=== PATIENT | female | born 1935 | race Caucasian/White ===

== ENCOUNTER 2023-05-30 21:33 | Inpatient (IN) | payer MEDICARE, SELFPAY ==
--- NOTE | 2023-05-30 | ECG_ITS ---
Test Reason : NEAR SYNCOPE Blood Pressure : / mmHG Vent. Rate : 085 BPM Atrial Rate : 085 BPM P-R Int : 188 ms QRS Dur : 084 ms QT Int : 378 ms P-R-T Axes : 071 -34 069 degrees QTc Int : 449 ms Normal sinus rhythm Left axis deviation Low voltage QRS Cannot rule out Anterior infarct , age undetermined Abnormal ECG No previous ECGs available Referred By: Generic ED Physician Electronically Signed By:DORETHA ARIAS MD
--- NOTE | ~2023-05-30 | XR_ITS ---
EXAMINATION: XR CHEST CLINICAL INFORMATION: Weakness. Fall. COMPARISON: None available. TECHNIQUE: Frontal view of the chest was obtained. 11:17 PM FINDINGS: Diffuse coarse increased lung markings which could be due to interstitial edema/pneumonia versus pulmonary edema and/or chronic interstitial lung disease. No focal consolidation. No pleural effusion or pneumothorax. XR/XR chest 1V IMPRESSION: Diffuse coarse increased lung markings which could be due to interstitial edema/pneumonia versus pulmonary edema and/or chronic interstitial lung disease.
--- NOTE | ~2023-05-30 | CT_ITS ---
EXAMINATION: CT CHEST WITHOUT CONTRAST CLINICAL INFORMATION: Pneumonia versus CHF COMPARISON: None available. TECHNIQUE: Multidetector volumetric CT imaging of the chest was done. Axial MIP volume rendering provided. Sagittal and coronal reformatted images were obtained. This CT examination was performed using dose optimization techniques as appropriate, variously including the following: *Automated exposure control *Adjustment of mA and/or kV according to patient size (this includes techniques or standardized protocols for targeted exams where dose is matched to indication/reason for exam; i.e. extremities or head) *Use of iterative reconstruction technique DLP: 287 mGy-cm FINDINGS: HYDRATOR OPERATOR: There is diffuse haziness over both lungs. Examination limited due to respiratory motion. LUNGS: There are groundglass opacities seen bilaterally mostly seen. Fairly with clear central portion of lungs there is no evidence of interstitial lung disease or vascular congestion. No lung nodules identified. There are mild changes of emphysema. There is 0.4 cm calcified nodule in the right lower lobe seen on image 36, MEDIASTINUM: The mediastinum is normal. Calcified lymph nodes seen in mediastinum and right hilum CORONARY ARTERY CALCIFICATION: Mild PLEURA: There is no pleural effusion. No pleural mass or thickening. AXILLA: No lymphadenopathy. UPPER ABDOMEN: Supine and calcified granuloma seen in the spleen OSSEOUS STRUCTURES: There are mild multilevel degenerative changes in thoracic spine without compression deformities or spinal canal stenosis. CT/CT chest wo IV con IMPRESSION: 1. Groundglass opacities seen bilaterally most likely due to pneumonitis. No evidence of interstitial lung disease. 2. Evidence of old granulomatous disease. 3. Mild changes of emphysema. 4. Mild coronary artery calcifications. Fleischner guidelines were followed.
--- NOTE | ~2023-05-30 | CT_ITS ---
EXAMINATION: CT HEAD WITHOUT CONTRAST CLINICAL INFORMATION: Weakness. Fall. Dizziness. COMPARISON: None available. TECHNIQUE: Contiguous axial imaging was performed from the skull base to vertex without intravenous administration of contrast. This CT examination was performed using dose optimization techniques as appropriate, variously including the following: *Automated exposure control *Adjustment of mA and/or kV according to patient size (this includes techniques or standardized protocols for targeted exams where dose is matched to indication/reason for exam; i.e. extremities or head) *Use of iterative reconstruction technique DLP: 615 mGy-cm FINDINGS: There is cerebral volume loss with prominence of the lateral and the third ventricles. The cortical sulci are widened appropriately. The fourth ventricle and basal cisterns are normally outlined. There is moderate bilateral periventricular and central white matter diminished attenuation. There is no acute territorial defect, hemorrhage or midline shift. The extra-axial spaces are unremarkable. Calvarium: Intact. Maxillofacial sinuses and mastoids: Clear as visualized. CT/CT head/brain wo IV con IMPRESSION: 1. No acute intracranial process seen. 2. Moderate cerebral volume loss with moderate chronic small vessel ischemic changes.
--- NOTE | ~2023-05-30 | US_ITS ---
EXAMINATION: US EXTRACRANIAL CAROTID DUPLEX, BILATERAL CLINICAL INFORMATION: Events of dizziness upon standing COMPARISON: None available. TECHNIQUE: Real-time ultrasound and Doppler techniques (integrating B-mode 2-D vascular images, Doppler spectral analysis and color-flow Doppler imaging) were utilized to interrogate the extracranial carotid arteries, the vertebral arteries and proximal subclavian arteries bilaterally. The degree of stenosis is determined by criteria similar to NASCET. FINDINGS: Right Side: 1. There is mild atherosclerotic plaque seen in the bifurcation/proximal ICA region. 2. The common carotid artery PSV proximally is 92.5 cm/s and distally 95.7 cm/s. 3. The proximal internal carotid artery velocities are 68.9 cm/s systolic and 17.1 cm/s diastolic. 4. The proximal external carotid artery PSV is 121 cm/s. 5. The vertebral artery shows antegrade flow. 6. The subclavian artery waveforms are normal. Left Side: 1. There is mild atherosclerotic plaque seen in the bifurcation/proximal ICA region. 2. The common carotid artery PSV proximally is 136 cm/s and distally 72.7 cm/s. 3. The proximal internal carotid artery velocities are 106 cm/s systolic and 27.3 cm/s diastolic. 4. The proximal external carotid artery PSV is 113 cm/s. 5. The vertebral artery shows antegrade flow. 6. The subclavian artery waveforms are normal. US/US carotid duplex BI IMPRESSION: 1. RIGHT: Minimal, non-hemodynamically significant stenosis of the proximal right internal carotid artery corresponding to a 0-49% stenosis by velocity criteria. 2. LEFT: Minimal, non-hemodynamically significant stenosis of the proximal left internal carotid artery corresponding to a 0-49% stenosis by velocity criteria.
[2023-05-30 21:39] VITALS: BP 108/70; BP 118/68; PULSE 62; PULSE 89; RESP 14; TEMP 36.6; O2SAT 94; BMI 16.3
--- NOTE | 2023-05-30 21:56 | PC.NURSE ---
Pt coming from home, lives with son. Per EMS pt has dementia son informed she was having decrease in mental statis and increase in weakness. Tonight she had a near syncopal episode son caught her and lowered to the ground. no headstrike, no LOC and no thinners. Pt recently diagnosed with UTI and started on cephalexin but then told she didn't have UTI but she should finish abx. Pt is in bed no complaints at this time. Alert to self only, calm and cooperative. #20 to R-forearm placed by EMS.
[2023-05-30 22:09] LABS: Hematocrit 34.7 % (37.0-47.0); Hemoglobin 11.9 g/dl (12.0-16.0); Mean Corpuscular HGB Conc 34.3 g/dl (31.0-35.0); Mean Corpuscular Hemoglobin 32.6 pg (27.0-33.0); Mean Corpuscular Volume 95.1 fL (80.0-98.0); Mean Platelet Volume 9.4 fL (9.4-12.3); Platelet Count 262 X10*3/uL (160-400); Red Blood Count 3.65 X10*6/uL (4.20-5.50); Red Cell Distribution Width 12.7 % (11.0-16.0); White Blood Count 11.2 X10*3/uL (4.8-10.8)
[2023-05-30 22:22] LABS: Anion Gap 17 (12-20); Blood Urea Nitrogen 28 mg/dL (9-16); Calcium 9.6 mg/dL (8.4-10.2); Carbon Dioxide 22 mmol/L (22-29); Chloride 104 mmol/L (96-108); Creatinine Clr Calc Pharmacy 39.1; Estimated Glomerular Filt Rate > 60; Glucose Random 126 mg/dL (60-115); Magnesium 1.9 mg/dL (1.6-2.6); Potassium 3.7 mmol/L (3.3-5.1); Sodium 139 mmol/L (135-145)
[2023-05-30 22:29] LABS: Troponin-I High Sensitivity 21.6 ng/L (<3.5-17.0)
--- NOTE | 2023-05-30 23:02 | ED_ITS ---
HPI - Syncope General Chief Complaint: Syncope Stated Complaint: GENERAL MALAISE, NEAR SYNCOPE Time Seen by Provider: 05/30/23 23:01 Source: family (SonSushant) Mode of arrival: EMS Limitations: other (Dementia) History of Present Illness HPI narrative: 87-year-old female with a history of hypertension, anxiety and dementia who presents emergency department for evaluation of a syncopal episode. Patient is a poor informant secondary to her dementia and lacks insight as to why she is here in the emergency department. Information comes from the patient's son. The patient has lived with her son and [id number] for approximately 2.5 years. Son states that the patient's dementia is got worse over the past 2-3 weeks. She is also having difficulty standing since any time she stands she feels dizzy and has to sit back down. Patient has also lost the ability to walk and is now using a wheelchair. Patient has not been eating or drinking well. The son states that his mother came out of the room he got up to meet her, she appeared to be anxious so he went to hug her to try to calm her down and then the patient's had a syncopal episode. According to the son the patient became ? weight ?and he had to lower her to the floor. She was moaning and not answering questions. This lasted for several minutes and the son called 911 and the patient was transported to the emergency department by ambulance. Son states the patient was diagnosed with urinary tract infection on Friday (3 days prior to arrival) and has been on antibiotics until today when patient's PCP called and states that the urine culture was negative and that the patient did not have a urinary tract infection by PCP recommended continuing the antibiotics. Related Data Allergies Allergy/AdvReac Type Severity Reaction Status Date / Time No Known Allergies Allergy Verified 05/30/23 21:39 [facility] Past Medical History [facility] Narrative: Past medical history: Hypertension, anxiety, mood disorder, dementia. Social history: Patient lives with her son and [id number] and has been living with them for 2.5 years. Son states he has been more difficult over the last 2- 3 weeks to take care of the patient since she is dizzy every time she stands and has not been able to walk in his required wheelchair to get around in the house. Social History Social History Alcohol intake: never Smoked in Last 30 Days: No Use of substances other than those prescribed or required for medical reasons: No Advance Directives: No Advance Directives Information Provided: No Physical Exam 2 Vital Signs: Vital Signs: Last Vital Signs Temp 97.9 F 05/30/23 21:39 Pulse 73 05/30/23 23:28 Resp 14 05/30/23 21:39 BP 88/57 L 05/30/23 23:28 Pulse Ox 98 05/31/23 01:40 O2 Del Method Room Air 05/31/23 01:40 BMI result Body Mass Index 16.3 Vital signs were normal Orthostatic vital signs: Lying: BP: 110/63, heart rate 70 Sitting: BP 88/57, heart rate 73 Patient was dizzy therefore standing was not done. Exam General: Awake, alert in no distress, oriented to person only, lacks insight as to why she is here, very thin appearing Head: Normocephalic, atraumatic EENT: PERRL, Lids normal, sclera normal, conjunctiva normal, nose normal , ears normal, throat without erythema or exudates Neck: Supple, no adenopathy Lung: breath sounds symmetric, no wheezing, rales or rhonchi Chest: symmetric movement, nontender Heart: regular rate and rhythm, normal S1, S2 no murmurs or rubs Abdomen: soft, non-tender, nondistended, normal bowel sounds Back: no vertebral tenderness, no CVAT Extremities: no deformities, moves all extremities symmetrically Neuro: Awake, alert, oriented to person only, normal speech, cranial nerves intact, moves all extremities symmetrically Psych: Pleasant, cooperative Medications Administered Discontinued Medications Generic Name Dose Route Start Last Admin Trade Name Jones PRN Reason Stop Dose Admin Sodium Chloride 1,000 mls @ 999 mls/hr 05/30/23 23:24 05/31/23 01:12 Ns IV 05/31/23 00:24 999 mls/hr .Q1H1M STA Administration Medical Decision Making Medical Decision Making MDM Narrative: 87-year-old female with a history of hypertension, anxiety and dementia who presents emergency department for evaluation of a witnessed syncopal episode. The patient walked into the room and did not appear well and her son went to hug her and the patient then had a syncopal/near syncopal episode where the son had to lower her to the floor and the patient was altered for several minutes. This is her 1st syncopal/near syncopal episode according to the son. The patient's dementia has gotten worse over the last 2-3 weeks, she is complained of dizziness with standing and has not been able to walk and is currently using a wheelchair which is new for her. Patient was diagnosed with possible UTI and on Keflex x3 days however according to the son PCP contacted him and said that the urine culture was negative but wanted the patient to finish the antibiotics. Patient has not been eating and drinking well over the last 2-3 weeks. Vital signs were normal. Orthostatic vital signs did reveal a drop in blood pressure from lying to sitting but no change in heart rate. Patient was symptomatic and dizzy with sitting. Exam was otherwise unremarkable. Differential diagnosis: Includes but not limited to myocardial infarction, myocardial ischemia, bradyarrhythmia, tachyarrhythmia, electrolyte abnormalities, electrolyte abnormalities, UTI, pneumonia, volume depletion, dehydration, orthostatic hypotension, CVA Following evaluation was ordered: CBC, CMP, liver panel, magnesium, PTT, lipase, urinalysis by straight cath, troponin now and 3 hour troponin, chest x- ray, CT scan of the brain, O2 saturation monitoring, cardiac monitoring Patient was treated with the following: Normal saline x1 L 23:53 My independent interpretation patient's laboratory evaluation as follows: Normocytic anemia with an H&H of 11.9 and 34.7. Elevated BUN 28 with a normal creatinine of 0.72. Elevated glucose 126. Bilirubin elevated 1.2-mainly direct bilirubin 0.7 suggesting that is not caused by liver disease. First troponin elevated at 21.6. Lipase normal. 01:57 Patient's 1st troponin was 21.6 and repeat troponin was 27.3 which is flat suggesting the patient did not have myocardial injury is the cause of her near syncopal episode. Urinalysis was unremarkable. CT scan of the brain revealed no acute findings. Chest x-ray is more consistent with chronic interstitial disease which is most likely age-related, no focal infiltrates suggesting pneumonia Given the patient's witnessed syncopal episode and dizziness over the last 2-3 weeks, I will discuss admission with the covering hospitalist. Lab Data MDM Lab Attestation statement: I reviewed the patient's lab results. 05/30/23 22:04 05/30/23 22:04 Labs: Lab Results 05/30/23 05/31/23 05/31/23 Range/Units 22:04 01:08 01:35 WBC 11.2 H (4.8-10.8) X10*3/uL RBC 3.65 L (4.20-5.50) X10*6/uL Hgb 11.9 L (12.0-16.0) g/dl Hct 34.7 L (37.0-47.0) % MCV 95.1 (80.0-98.0) fL MCH 32.6 (27.0-33.0) pg MCHC 34.3 (31.0-35.0) g/dl RDW 12.7 (11.0-16.0) % Plt Count 262 (160-400) X10*3/uL MPV 9.4 (9.4-12.3) fL Absolute Nucleated RBC 0.000 (0.0-0.012) X10*3/uL Nucleated RBC % (auto) 0.0 (0.0-0.2) /100WBC APTT 28.0 (26.0-36.8) SEC Sodium 139 (135-145) mmol/L Potassium 3.7 (3.3-5.1) mmol/L Chloride 104 (96-108) mmol/L Carbon Dioxide 22 (22-29) mmol/L Anion Gap 17 (12-20) BUN 28 H (9-16) mg/dL Creatinine 0.72 (0.5-1.4) mg/dL Estim Creat Clear Calc 39.1 Estimated GFR > 60 Random Glucose 126 H (60-115) mg/dL Calcium 9.6 (8.4-10.2) mg/dL Magnesium 1.9 (1.6-2.6) mg/dL Total Bilirubin 1.2 H (0.0-1.0) mg/dL Direct Bilirubin 0.7 H (0.0-0.5) mg/dL AST 28 (5-31) U/L ALT 13 (0-31) U/L Alkaline Phosphatase 59 (39-117) U/L Troponin I High Sens 21.6 H 27.3 H (<3.5-17.0) ng/L Total Protein 6.6 (6.5-8.0) g/dL Albumin 3.4 L (3.5-5.0) g/dL Lipase 12 (8-78) U/L Urine Color Dark Yellow Urine Appearance Clear Urine pH 5.5 (5.0-9.0) Ur Specific [place] 1.025 (1.005-1.025) Urine Protein 30 (1+) H (Neg-Trace) mg/dL Urine Glucose (UA) Negative (Negative) mg/dL Urine Ketones 15 (Negative) mg/dL Urine Blood Negative (Negative) Urine Nitrite Negative (Negative) Ur Leukocyte Esterase Trace H (Negative) Urine RBC 0-2 (0-2) /HPF Urine WBC 0-5 (0-5) /HPF Ur Squamous Epith Cells 3-5 (0-2) /HPF Urine Bacteria None Seen (None Seen) Hyaline Casts 0-2 (0-2) /LPF Independent Interpretation I performed an independent interpretation of an: EKG and Plain X-Ray Interpretation: My independent interpretation patient's 12 EKG done at 21:51 hours is as follows: Normal sinus rhythm rate 85, normal CT interval, QRS duration QTC interval, no ST segment elevation, no ST segment depression, no T-wave abnormalities, no PACs, no PVCs, poor R-wave progression V1 through V3-no old EKG for comparison My independent interpretation the patient's one-view chest x-ray is as follows: Increased interstitial markings more consistent with interstitial lung disease, no acute infiltrate Radiology Impression Discussion of test interpretation with radiology: I have reviewed the radiologist's reading. Radiologist Impression: CT head/brain wo IV con IMPRESSION: 1. No acute intracranial process seen. 2. Moderate cerebral volume loss with moderate chronic small vessel ischemic changes. Dictated By: Clarence Chambers XR chest 1V IMPRESSION: Diffuse coarse increased lung markings which could be due to interstitial edema/pneumonia versus pulmonary edema and/or chronic interstitial lung disease. Dictated By: Devonte Bender MD Critical Care Time Critical Care Time Critical Care Time: Yes Total Critical Care Time: 45 Attestation: Critical Care: The patient was critically ill with a high probability of imminent or life threatening deterioration. I spent greater than 30 minutes of discontinuous time evaluating the patient,delivering critical care at the bedside, discussing and evaluating pertinent data with consultants. Critical care time does not include time spent performing separately billable procedures or teaching. Total time spent performing critical care was 45 minutes. Discharge Plan Discharge Patient Disposition: Admitted As Inpatient
[2023-05-30 23:23] VITALS: BP 110/63; PULSE 70
[2023-05-30 23:23] LABS: Alanine Aminotransferase 13 U/L (0-31); Albumin Level 3.4 g/dL (3.5-5.0); Alkaline Phosphatase 59 U/L (39-117); Aspartate Amino Transferase 28 U/L (5-31); Bilirubin Direct 0.7 mg/dL (0.0-0.5); Bilirubin Total 1.2 mg/dL (0.0-1.0); Lipase 12 U/L (8-78); Total Protein 6.6 g/dL (6.5-8.0)
[2023-05-30 23:28] VITALS: BP 88/57; PULSE 73
[2023-05-31] VITALS (10 sets, daily range): BP systolic 97–161; BP diastolic 56–86; PULSE 74–105; RESP 13–30; TEMP 36.2–37; O2SAT 90–98
[2023-05-31] MEDS: 0.9 % Sodium Chloride 1,000 ML 999 ML IV (01:12)
--- NOTE | 2023-05-31 01:17 | MHC.EDTECH ---
PT requested water, okay with RN. Got a cup of ice water. All set
[2023-05-31 01:33] LABS: Troponin-I High Sensitivity 27.3 ng/L (<3.5-17.0)
[2023-05-31 01:41] LABS: Appearance Urine Clear; Color Urine Dark Yellow; Glucose Urine UA Negative (Negative); Leukocyte Esterase Urine Trace (Negative); Nitrite Urine Negative (Negative); PH 5.5 (5.0-9.0); Specific Gravity - Urine 1.025 (1.005-1.025); UMIC TRIGGER UACC YES; Urine Blood Negative (Negative); Urine Ketones 15 mg/dL (Negative); Urine Protein 30 (1+) mg/dL (Neg-Trace)
--- NOTE | 2023-05-31 01:42 | PC.NURSE ---
PT assisted to commode 1 assist. IV fluids started and urine sent out to lab. Pt assisted back to bed. son at bedside
[2023-05-31 01:50] LABS: Bacteria Urine None Seen (None Seen); Hyaline Casts Urine 0-2 /LPF (0-2); RBC Urine 0-2 /HPF (0-2); WBC Urine 0-5 /HPF (0-5)
--- NOTE | 2023-05-31 03:49 | P.HPHOSP_ITS ---
History of Present Illness Date of Service: 05/31/23 Attending physician on admission: May Leo Chief Complaint: Near syncope Sagrario Hart is 87 years old woman with past medical history significant for dementia and hypertension was brought to the emergency department via EMS after she almost faint last evening around 6 pm. The patient was walking and became very weak and barely responsive. Her son called her and lower her to the ground. No seizure activity noted by son. No events of vomiting or diarrhea noted. Patient has significant dementia however was able to say that she gets headaches occasionally. She denied any chest pain, abdominal pain or shortness on breath. Fever or chills not reported. There is no history of tobacco smoking, alcohol abuse or illicit drug use. Patient has been taking cephalexin over the last 2 days for a presumed UTI. Patient's son who was at bedside comment the patient does not eat or drink well. In the ED, she was found to have orthostatic vital signs. No tachycardia, fevers or tachypnea. CBC showed no leukocytosis of 11.2. Total bilirubin is slightly elevated (direct bilirubin 0.7). Transaminases and alk-phos are normal. CXR showed findings possibly indicating interstitial edema/pneumonia versus pulmonary edema and/or chronic interstitial lung disease. Head CT scan showed no acute intracranial abnormalities. ED tx: NS 1 L bolus Review of Systems 2 Review of Systems: Yes Unobtainable due to mental status [facility] Medical History (Updated 05/31/23 @ 05:05 by May Leo MD) Depression Dementia GERD (gastroesophageal reflux disease) Essential hypertension Social History Alcohol intake: never Smoked in Last 30 Days: No Use of substances other than those prescribed or required for medical reasons: No Advance Directives: No Advance Directives Information Provided: No Meds Allergies Allergy/AdvReac Type Severity Reaction Status Date / Time No Known Allergies Allergy Verified 05/30/23 21:39 Active Medications: Current Medications Acetaminophen (Acetaminophen 325 Mg Tablet) 650 mg PO Q6H PRN PRN Reason: Pain, Mild (Pain Scale 1-3) Heparin Sodium (Porcine) (Heparin Sodium,Porcine 5,000 Unit/Ml Vial) 5,000 unit SUBCUT Q12H KAROL Sodium Chloride (Ns) 1,000 mls @ 75 mls/hr IVCONT .[id number] [facility] Stop: 05/31/23 15:44 Sodium Chloride (0.9 % Sodium Chloride Flush 3 Ml Syringe) 3 ml IVFLUSH QSHIFT [facility] Home Medications Medication Instructions Recorded Confirmed Last Taken Type cephalexin 500 mg capsule 500 mg PO BID 05/31/23 05/31/23 Unknown History lisinopril 10 mg tablet 10 mg PO DAILY 05/31/23 05/31/23 Unknown History pantoprazole 40 mg tablet,delayed 40 mg PO DAILY 05/31/23 05/31/23 Unknown History release sertraline 25 mg tablet 37.5 mg PO DAILY 05/31/23 05/31/23 Unknown History Physical Exam 2 Vital Signs and Narrative: Vital Signs: Last Vital Signs Temp 97.9 F 05/30/23 21:39 Pulse 73 05/30/23 23:28 Resp 14 05/30/23 21:39 BP 88/57 L 05/30/23 23:28 Pulse Ox 98 05/31/23 01:40 O2 Del Method Room Air 05/31/23 01:40 BMI result Body Mass Index 16.3 Constitutional - Awake and Alert, No apparent distress. Pleasant. Cooperative. Follows simple commands. HEENT - Normocephalic. Atraumatic. Pupils equally round. Heart - Regular rate and rhythm. (+) murmur Respiratory - Normal lung expansion, Normal respiratory effort, No respiratory distress. Bilateral dry crackles/velcro-like Gastrointestinal - NT / ND; +BS; No rebound or guarding Extremities - no calf tenderness bilaterally, no swelling Musculoskeletal - Normal inspection, normal ROM Skin - Warm/Dry Neurological - Alert & oriented x (person). Confused. No focal weakness. Normal speech. Psychological - Appropriate affect Results Labs 05/30/23 22:04 05/30/23 22:04 Labs: Laboratory Results - last 24 hr 05/30/23 05/31/23 05/31/23 22:04 01:08 01:35 MCV 95.1 MCH 32.6 MCHC 34.3 RDW 12.7 Plt Count 262 MPV 9.4 Absolute Nucleated RBC 0.000 Nucleated RBC % (auto) 0.0 APTT 28.0 Anion Gap 17 Estim Creat Clear Calc 39.1 Estimated GFR > 60 Random Glucose 126 H Calcium 9.6 Magnesium 1.9 Total Bilirubin 1.2 H Direct Bilirubin 0.7 H AST 28 ALT 13 Alkaline Phosphatase 59 Troponin I High Sens 21.6 H 27.3 H Total Protein 6.6 Albumin 3.4 L Lipase 12 Urine Color Dark Yellow Urine Appearance Clear Urine pH 5.5 Ur Specific [place] 1.025 Urine Protein 30 (1+) H Urine Glucose (UA) Negative Urine Ketones 15 Urine Blood Negative Urine Nitrite Negative Ur Leukocyte Esterase Trace H Urine RBC 0-2 Urine WBC 0-5 Ur Squamous Epith Cells 3-5 Urine Bacteria None Seen Hyaline Casts 0-2 Imaging Radiologist's Impressions: Impressions Chest X-Ray 05/30/23 23:34 IMPRESSION: Diffuse coarse increased lung markings which could be due to interstitial edema/pneumonia versus pulmonary edema and/or chronic interstitial lung disease. Head CT 05/30/23 23:39 IMPRESSION: 1. No acute intracranial process seen. 2. Moderate cerebral volume loss with moderate chronic small vessel ischemic changes. Assessment and Plan (1) Essential hypertension: Status: Acute (2) Orthostatic hypotension: Status: Acute (3) Abnormal CXR: Status: Acute (4) GERD (gastroesophageal reflux disease): Qualifiers: Esophagitis presence: without esophagitis Qualified Code(s): K21.9 - Gastro-esophageal reflux disease without esophagitis Status: Acute (5) Dizziness: Status: Acute (6) Near syncope: Status: Acute Plan Sagrario Hart is 87 years old woman with past medical history significant for dementia presents with: * Near-syncopal episode likely secondary to orthostatic hypotension, likely due to p.o. intake + lisinopril use. Keeping observation. Telemetry. Pulse oximetry. Start gentle IV fluids. Check TTE. Fall precautions. Cardiology consult. * Abnormal CXR. Pulmonary edema versus underlying lung interstitial disease. No shortness on breath. Legs edema or hypoxia. Check BNP and TTE. * Essential hypertension. Lisinopril on hold due to orthostatic hypotension. Continue to monitor blood pressure. * Depression. Continue sertraline. * GERD. Continue PPI. Code status: DNR/DNI (dw son who mentioned has a MOLST form indicating she is DNR/DNI). DVT prophylaxis: Heparin subQ. Quality Stroke Does the patient have a stroke diagnosis?: No VTE Prior VTE?: No VTE Risk Level:: Medical - moderate - high VTE Device Contraindication: Treatment Not Indicated VTE Drug Contraindication: N/A - Med Ordered
[2023-05-31] MEDS: 0.9 % Sodium Chloride 1,000 ML 75 ML IVCONT (04:36)
[2023-05-31 05:30] LABS: Basophils Percent Auto 0.3 % (0-2); Eosinophils Absolute Auto 0.2 X10*3/uL (0.0-0.4); Eosinophils Percent Auto 2.2 % (0-4); Hematocrit 34.1 % (37.0-47.0); Hemoglobin 11.7 g/dl (12.0-16.0); Imm Gran Abs Auto 0.09 X10*3/uL (0.00-0.03); Imm Gran Pct Auto 0.9 % (0.0-0.4); Lymphocytes Percent Auto 9.7 % (20-40); MANUAL DIFF FLAG NO; Mean Corpuscular HGB Conc 34.3 g/dl (31.0-35.0); Mean Corpuscular Hemoglobin 32.6 pg (27.0-33.0); Mean Platelet Volume 9.2 fL (9.4-12.3); Monocytes Absolute Auto 0.9 X10*3/uL (0.1-1.2); Monocytes Percent Auto 8.5 % (2-11); Neutrophils Percent Auto 78.4 % (45-73); Platelet Count 267 X10*3/uL (160-400); Red Blood Count 3.59 X10*6/uL (4.20-5.50); Red Cell Distribution Width 12.7 % (11.0-16.0); White Blood Count 10.2 X10*3/uL (4.8-10.8)
[2023-05-31 05:47] LABS: Alanine Aminotransferase 13 U/L (0-31); Alkaline Phosphatase 57 U/L (39-117); Anion Gap 13 (12-20); Aspartate Amino Transferase 26 U/L (5-31); Bilirubin Total 1.1 mg/dL (0.0-1.0); Blood Urea Nitrogen 24 mg/dL (9-16); Calcium 8.9 mg/dL (8.4-10.2); Carbon Dioxide 22 mmol/L (22-29); Chloride 108 mmol/L (96-108); Creatinine Clr Calc Pharmacy 38.6; Estimated Glomerular Filt Rate > 60; Glucose Random 94 mg/dL (60-115); Magnesium 1.8 mg/dL (1.6-2.6); Potassium 3.9 mmol/L (3.3-5.1); Sodium 139 mmol/L (135-145); Total Protein 6.1 g/dL (6.5-8.0)
[2023-05-31 05:51] LABS: B Type Natriuretic Peptide 139 pg/mL (<100)
[2023-05-31 08:58] LABS: Procalcitonin 0.25 ng/mL
--- NOTE | 2023-05-31 08:58 | PC.NURSE ---
pt attempted to be fed breakfast, tolerated honey thick liquids well. pt had some trouble with the oatmeal, brief period of coughing. vital signs monitored and remained stable. pt needs 1:1 feed, keeps eyes closed but follows commands well and wants to eat when being helped.
--- NOTE | 2023-05-31 08:59 | PHA.MEDREC ---
Pharmacy Consult ? Medication Reconciliation Pharmacy has completed the medication reconciliation. Spoke to Sushant ([phone]) to confirm meds.
--- NOTE | 2023-05-31 09:00 | PC.NURSE ---
omeprazole extended release held at this time due to pt unable to swallow effectively and unable to crush ER pill. pt medicated otherwise via crushed pills.
[2023-05-31] MEDS: Sertraline HCL 25 MG TABLET 37.5 MG PO (09:06)
[2023-05-31] MEDS: Heparin Sodium,Porcine 5,000 UNIT/ML VIAL 5000 UNIT SUBCUT ×2 (09:08→19:59)
--- NOTE | 2023-05-31 09:15 | PC.NURSE ---
son at bedside, noted to be feeding pt ensure via straw, pt noted to have increase in coughing. SPO2 assessed and is 83-85%. pt placed on 2L O2 NC with improvements to 90's. pt alert and still at baseline, other vss. son educated on pts swallowing difficulties and only feeding honey thick liquids at this time. admitting provider notified.
[2023-05-31] MEDS: Pantoprazole Sodium 40 MG/10 ML VIAL IVPUSH (13:20)
--- NOTE | 2023-05-31 15:49 | PM.EVENT ---
Event Note Date of Service: 06/01/23 Event Note: Patient seen examined by hospital earlier This patient is seen and examined again Patient has desats in 80's as per staff ct chest shows -possible pneumonia /emphysema Physical exam and assessment and plan coordinated in APCs note, Agree with the plan in addition: added ceftriaxone/doxycycline, also some nebs and steroids, continue oxygen for now. Possible Orthostasis: Ishmael stocking, if needed will add midodrine. Time Spent With Patient Time: Total time managing care of this patient today ____ minutes.
[2023-05-31] MEDS: Albuterol/Iprat 2.5/0.5MG 3 ML AMPUL.NEB INHALE (16:14)
[2023-05-31] MEDS: 0.9 % Sodium Chloride Flush 3 ML SYRINGE IVFLUSH ×2 (17:45→19:59)
[2023-05-31] MEDS: cefTRIAXone sodium 1 GM in 0.9 % Sodium Chloride 50 ML IV (17:45)
--- NOTE | 2023-05-31 17:55 | PC.NURSE ---
This RN reached out to provider in regards to PO medications placed this afternoon, Provider aware of PO medications held this morning d/t swallowing concerns, speech eval placed but has not been completed at this time, PO medications held, no new IV orders placed at this time.
[2023-05-31] MEDS: Doxycycline Hyclate 100 MG in 0.9 % Sodium Chloride 250 ML 166.67 MG IV (19:56)
[2023-05-31] MEDS: Midodrine HCl 2.5 MG TABLET PO (19:58)
[2023-05-31 22:02] LABS: Glucose, Whole Blood 94 mg/dL (60-115)
[2023-06-01] VITALS (11 sets, daily range): BP systolic 105–126; BP diastolic 59–65; PULSE 64–91; RESP 16–22; TEMP 36.4–37.8; O2SAT 93–95
[2023-06-01] MEDS: Albuterol/Iprat 2.5/0.5MG 3 ML AMPUL.NEB INHALE ×2 (07:31→19:16)
[2023-06-01] MEDS: Doxycycline Hyclate 100 MG in 0.9 % Sodium Chloride 250 ML 166.67 MG IV ×2 (09:41→20:06)
[2023-06-01] MEDS: Heparin Sodium,Porcine 5,000 UNIT/ML VIAL 5000 UNIT SUBCUT ×2 (09:43→21:09)
[2023-06-01] MEDS: Pantoprazole Sodium 40 MG/10 ML VIAL IVPUSH (09:44)
[2023-06-01] MEDS: Midodrine HCl 2.5 MG TABLET PO ×3 (09:47→21:09)
[2023-06-01] MEDS: predniSONE 20 MG TABLET 40 MG PO (09:47)
[2023-06-01] MEDS: Sertraline HCL 25 MG TABLET 37.5 MG PO (09:47)
--- NOTE | 2023-06-01 11:50 | PC.NURSE ---
per MD jeong for pt to have PO meds crushed in apple sauce
--- NOTE | 2023-06-01 12:29 | HO.PM.IMPN ---
Subjective Subjective Date of Service: 06/01/23 Interval History: dementia ,possible pneumonia Review of Systems no fevers seems similar as yesterday could able to take meds po crushed no chest pain Physical Exam Vital Signs: Vital Signs: Last Vital Signs Temp 99.6 F 06/01/23 11:22 Pulse 68 06/01/23 11:22 Resp 18 06/01/23 11:22 BP 122/62 06/01/23 11:22 Pulse Ox 95 06/01/23 11:22 O2 Del Method Nasal Cannula 06/01/23 11:22 O2 Flow Rate 2 06/01/23 11:22 BMI result Body Mass Index 16.3 Appearance: Alert.? Oriented X1 ,seems near baselineas per her son. cvs: rrr, [id number]. res:air entry fair -diminshed at base ,few dry cracles. abd: no rebound or guarding ,nt, bs present. ext pulses present , no cyanosis . neuro: axo3 , nonfocal. Objective Data Active Medications Acetaminophen (Acetaminophen 325 Mg Tablet) 650 mg PO Q6H PRN PRN Reason: Pain, Mild (Pain Scale 1-3) Albuterol/Ipratropium (Albuterol/Iprat 2.5/0.5mg 3 Ml Ampul.Neb) 3 ml INHALE RQ4H WHILE AWAKE COUNTS INCLUDE 234 BEDS AT THE [facility] Last Admin: 06/01/23 12:00 Dose: Not Given Documented By: MELINDA Non-Admin Reason: Patient Refused Heparin Sodium (Porcine) (Heparin Sodium,Porcine 5,000 Unit/Ml Vial) 5,000 unit SUBCUT Q12H COUNTS INCLUDE 234 BEDS AT THE [facility] Last Admin: 06/01/23 09:43 Dose: 5,000 unit Documented By: BRIAN Ceftriaxone Sodium 1 gm/ (Sodium Chloride) 50 mls @ 100 mls/hr IV Q24H COUNTS INCLUDE 234 BEDS AT THE [facility] Last Infusion: 05/31/23 19:14 Dose: Infused Documented By: SUSI Doxycycline Hyclate 100 mg/ (Sodium Chloride) 250 mls @ 166.67 mls/hr IV Q12H COUNTS INCLUDE 234 BEDS AT THE [facility] Last Infusion: 06/01/23 11:15 Dose: Infused Documented By: BRIAN Midodrine (Midodrine Hcl 2.5 Mg Tablet) 2.5 mg PO TID COUNTS INCLUDE 234 BEDS AT THE [facility] Last Admin: 06/01/23 09:47 Dose: 2.5 mg Documented By: BRIAN Pantoprazole Sodium (Pantoprazole Sodium 40 Mg/10 Ml Vial) 40 mg IVPUSH DAILY@0630 COUNTS INCLUDE 234 BEDS AT THE [facility] Last Admin: 06/01/23 09:44 Dose: 40 mg Documented By: BRIAN Prednisone (Prednisone 20 Mg Tablet) 40 mg PO DAILY COUNTS INCLUDE 234 BEDS AT THE [facility] Last Admin: 06/01/23 09:47 Dose: 40 mg Documented By: BRIAN Sertraline HCl (Sertraline Hcl 25 Mg Tablet) 37.5 mg PO DAILY COUNTS INCLUDE 234 BEDS AT THE [facility] Last Admin: 06/01/23 09:47 Dose: 37.5 mg Documented By: BRIAN Sodium Chloride (0.9 % Sodium Chloride Flush 3 Ml Syringe) 3 ml IVFLUSH QSHIFT COUNTS INCLUDE 234 BEDS AT THE [facility] Last Admin: 06/01/23 07:33 Dose: Not Given Documented By: BRIAN Non-Admin Reason: See Note Labs 05/31/23 05:25 05/31/23 05:25 Labs: Laboratory Results - last 24 hr 05/31/23 21:16 POC Glucose 94 Assessment and Plan (1) Near syncope: Status: Acute (2) Abnormal CXR: Status: Acute (3) Orthostatic hypotension: Status: Acute (4) Pneumonia: Status: Acute (5) Malnutrition: Status: Acute Plan 87 years old woman with past medical history significant for dementia presents with: Near-syncopal episode likely secondary to orthostatic hypotension, likely due to p.o. intake + lisinopril use. moniter on tele ct head: No acute intracranial process seen. Moderate cerebral volume loss with moderate chronic small vessel ischemic changes. carotid dupplex: seems fine. elevated trop possible multifactorial ,ekg nsr,no chest pain -dehydration,pneumonia ,added echo. plan: jayson stocking,if needed add midodrine,PT eval hypoxemic respiratory failure :multifactorial cxr: Pulmonary edema versus underlying lung interstitial disease vs pneumonia . hypoxia elevated bnp and procalcitonin ct chest-Groundglass opacities seen bilaterally most likely due to pneumonitis,emphysema plan: check echo-eleevated bnp. started on iv ceftriaxone/doxyccyline 05/31,nebs,steriods.oxygen supplement. Essential hypertension. Lisinopril on hold due to orthostatic hypotension. Continue to monitor blood pressure. Depression. Continue sertraline. GERD. Continue PPI. possible moderate to severe malnutrition: added nursing project coordinator eval and speech eval for swallow eval Code status: DNR/DNI (dw son who mentioned has a MOLST form indicating she is DNR/DNI). DVT prophylaxis: Heparin subQ. ongoing hospitalisation need: hypoxemic respiratory failure multifactorial-pneumonia , emphysema :continuous oxygen need,nebs,steriods ,iv antibiotics ,as well as need workup for syncope,telemonitering and Pt eval. Quality Stroke Does the patient have a stroke diagnosis?: No VTE Prior VTE?: No VTE Risk Level:: Medical - moderate - high VTE Device Contraindication: Treatment Not Indicated VTE Drug Contraindication: N/A - Med Ordered
[2023-06-01] MEDS: cefTRIAXone sodium 1 GM in 0.9 % Sodium Chloride 50 ML IV (15:53)
[2023-06-01] MEDS: 0.9 % Sodium Chloride Flush 3 ML SYRINGE IVFLUSH (15:54)
--- NOTE | 2023-06-01 16:13 | MHC.CM.PN ---
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
[2023-06-01] MEDS: Dextrose 5 % and 0.9 % NaCl 1,000 ML 60 ML IVCONT (19:14)
[2023-06-02] VITALS (15 sets, daily range): BP systolic 103–142; BP diastolic 56–73; PULSE 61–91; RESP 16–20; TEMP 36.3–37.1; O2SAT 93–97; BMI 18.1
[2023-06-02] MEDS: 0.9 % Sodium Chloride Flush 3 ML SYRINGE IVFLUSH ×4 (00:01→23:29)
[2023-06-02] MEDS: Pantoprazole Sodium 40 MG/10 ML VIAL IVPUSH (06:27)
--- NOTE | 2023-06-02 07:00 | CA_ITS ---
Transthoracic Echocardiogram Patient (Last, First, Middle): Sagrario Hart, Gender: Female Date of : 1935 Age: 87 Procedure Date: 06/02/2023 Procedure Type: Transthoracic Echocardiogram Location: [facility] [place] Height: 167.64 cm Weight: 45.81 kg BSA: 1.50 m2 Heart Rate: bpm BP: 101 / 68 mmHg Parts Puller: Referring MD: May Leo MD Symptoms: Near syncope Study Quality: Fair ECG Rhythm: Sinus Conclusions: - The left ventricular systolic function is normal. The calculated ejection fraction is 65% by biplane method. - There is mild aortic valve regurgitation. - There is mild mitral valve regurgitation. - There is mild to moderate tricuspid valve regurgitation. Findings Left Ventricle Normal left ventricular cavity size. There is normal left ventricular wall thickness. The left ventricular systolic function is normal. The calculated ejection fraction is 65% by biplane method. There is no evidence of regional wall motion abnormalities. Diastolic function is normal for age. Right Ventricle Normal right ventricular cavity size and systolic function. Atria Both atria are normal in size. Aortic Valve There is a normal trileaflet aortic valve. There is no aortic valve stenosis. There is mild aortic valve regurgitation. Mitral Valve The mitral valve appears normal. There is mild mitral valve regurgitation. There is no mitral valve stenosis. Pulmonic Valve There is mild pulmonic valve regurgitation. Tricuspid Valve Normal tricuspid valve structure. There is mild to moderate tricuspid valve regurgitation. Borderline RVSP. Great Vessels The asc aorta is normal in size. Venous The inferior vena cava is normal in size and collapses greater than 50% with inspiration. Pericardium/Pleural There is no evidence of pericardial effusion. Prior Study Comparison No prior study available for comparison. Measurements 2D Linear Measurements IVSd: 0.86 0.6-0.9/0.6-1.0 cm LVIDd: 3.88 3.9-5.3/4.2-5.9 cm LVIDd Index: 2.59 2.4-3.2/2.2-3.1 cm/m2 LVIDs: 2.27 2.0-3.6 cm LVPWd: 0.80 0.7-1.1 cm Ao Root: 3.40 2.1-3.5 cm LA Diam: 2.10 2.7-3.8/3.0-4.0 cm LAIDs Index: 1.40 1.5-2.3 cm/m2 LV Mass: 116.47 67-162/88-224 g LV Mass Index: 77.65 43-95/49-115 g/m2 LVOT Diam: 2.00 3.0+(-)1.3 cm 2D Systolic Function EF 4C: 62.30 >55% EF 2C: 68.60 >55% EF BiP: 64.90 >55% Mitral Valve MV Pk E: 0.84 MV PK A: 0.67 MV Decel Time: 256.00 E/A: 1.30 E'Lateral: 7.07 E'Medial: 8.59 E/E' Med: 9.80 E/E' Lat: 11.90 PHT: 75.00 MVA PHT: 2.93 Decel Erie: 3.30 Aortic Valve AoV Pk Juan A: 1.49 AoV Mn Juan A: 0.98 AoV VTI: 0.34 AoV Pk Grad: 9.00 Aov Mn Grad: 4.00 CHANDA Cont.VTI: 1.76 LVOT LVOT Pk Juan A: 0.93 LVOT Mn Juan A: 0.59 LVOT VTI: 0.19 LVOT Pk Grad: 3.00 LVOT Mn Grad: 2.00 LVOT Diam: 2.00 LVOT Area: 3.14 Diastolic Function MV Pk E: 0.84 MV Pk A: 0.67 E/A: 1.30 E'Medial: 8.59 E/E' Med: 9.80 E' Laterial: 7.07 E/E' Lat: 11.90 Right Ventricle TAPSE (mm): 26.00 TVS' Juan A: 16.00 Tricuspid Valve TR Pk Juan A: 2.88 TR Pk Grad: 33.00 RA Press: 3.00 RVSP: 36.00 Great Vessels Aorta Ao Root-2D: 3.40 2.0-3.7 cm Ao Asc: 3.20 2.1-3.4 cm Pulmonary Valve PV Pk Juan A: 0.92 Peak PV Grad: 3.00 Updated in Other Vendor System with Status of Final Miles Haile MD electronically signed on 06/02/2023 7:33:37 AM with status of Final
[2023-06-02] MEDS: Albuterol/Iprat 2.5/0.5MG 3 ML AMPUL.NEB INHALE ×4 (07:16→20:00)
--- NOTE | 2023-06-02 10:18 | MHC.CM.PN ---
Patient may benefit from a PT Eval to assist with disposition; CM will follow.
[2023-06-02] MEDS: predniSONE 20 MG TABLET 40 MG PO (10:21)
[2023-06-02] MEDS: Midodrine HCl 2.5 MG TABLET PO ×3 (10:21→23:29)
[2023-06-02] MEDS: Doxycycline Monohydrate 100 MG CAPSULE PO ×2 (10:21→23:29)
[2023-06-02] MEDS: Sertraline HCL 25 MG TABLET 37.5 MG PO (10:21)
[2023-06-02] MEDS: Heparin Sodium,Porcine 5,000 UNIT/ML VIAL 5000 UNIT SUBCUT ×2 (10:22→23:29)
--- NOTE | 2023-06-02 10:51 | MHC.CLN ---
PT IS MODERATELY MALNOURISHED PT WITH MILDLY DEPLETED SUBCUTANEOUS FAT AND MUSCLE MASS WITH BMI 18 WITH CHRONIC POOR PO INTAKE PT'S DIET WAS RECENTLY ADVANCED TO CHOPPED WITH HT LIQ PER [place] CONSULTANT PT'S SON STATES PT APPETITE WAS POOR, HOWEVER PT REPORTS HER APPETITE IS GOOD. RECOMMEND ADDING MAGIC CUP TID TO INCREASE KCALS SUPP TO PROVIDE 870KCALS, 27G PROTEIN MONITOR PO INTAKE AND ENCOURAGE SUPPLEMENT SEE ALSO FULL CLINICAL NUTRITION ASSESSMENT
--- NOTE | 2023-06-02 11:33 | MHC.SL.SWA ---
Speech Pathologist Impression: Risk of aspiration, oropharyngeal dysphagia Risk of Aspiration Due to: History of Pneumonia Reduced Cognition Dysphasia Diet Status:Start on NDD3/HTL Liquid Consistency and Strategies for Safe Swallow: Liquid Intake Recommendation: Honey Thick Liquid Intake Strategies: Small Sips No Straws Solid Food Consistency: Dietary Recommendations: Chopped/Advanced (NDD3) Additional Modifications to Solid Foods: Recommend UPGRADE from NPO, START on CHOPPED/ADVANCED (NDD3) diet with HONEY THICK liquid (no straws), pills CRUSHED in PUREE. Maintain aspiration precautions and direct supervision with close monitoring. Ensure optimal positioning for meals and set up tray for feeding. Provide assistance as needed. Oral Medication Intake: Crushed with Puree Please contact the pharmacy regarding appropriate crushable or liquid drug formulations that are available whenever modified delivery is recommended. Compensatory Strategies and Precautions to be Taken for Safe Swallow: Sitting Upright (90 deg) Double Swallow No Straw Small Bites and Sips Alternate Liquids/Solids Rate of Ingestion Change Avoid Specific Foods Supervision While Eating and Drinking for Safe Swallow: Total Supervision (1:1) Foods to Avoid: Mixed textures; hard, dry, or crunchy foods Swallowing Recommended Treatments: Compens. Strategy Educat. Recommendation for Speech: Inpatient Speech Therapy Comment: Direct supervision Frequency/Duration: PRN M-F Date Range for Service Req: Timeline to reassess: Cushion Maker Hand Clinican/Clinical Fellow: No Supervisory Statement: I have reviewed and agree with the student/clinical fellow's documentation: N/A Speech Language Pathologist: Sarah Herman M.A., CCC-BUSINESS WRITER
--- NOTE | 2023-06-02 13:35 | P.PNIM_ITS ---
Subjective Subjective Date of Service: 06/02/23 Interval History: dementia ,possible pneumonia Review of Systems hypoxia ,has dry cough Physical Exam 2 Vital Signs: Vital Signs: Last Vital Signs Temp 97.7 F 06/02/23 11:52 Pulse 63 06/02/23 11:52 Resp 20 06/02/23 11:52 BP 142/73 H 06/02/23 11:52 Pulse Ox 96 06/02/23 11:52 O2 Del Method Nasal Cannula 06/02/23 11:52 O2 Flow Rate 2 06/02/23 11:52 BMI result Body Mass Index 18.1 Appearance: Alert.? Oriented X1 ,seems near baselineas per her son. cvs: rrr, [id number]. res:air entry fair -diminshed at base ,few dry cracles. abd: no rebound or guarding ,nt, bs present. ext pulses present , no cyanosis . neuro: axo3 , nonfocal. Objective Data Active Medications Acetaminophen (Acetaminophen 325 Mg Tablet) 650 mg PO Q6H PRN PRN Reason: Pain, Mild (Pain Scale 1-3) Albuterol/Ipratropium (Albuterol/Iprat 2.5/0.5mg 3 Ml Ampul.Neb) 3 ml INHALE RQ4H WHILE AWAKE [facility] Last Admin: 06/02/23 11:33 Dose: 3 ml Documented By: SHARAD Doxycycline Monohydrate (Doxycycline Monohydrate 100 Mg Capsule) 100 mg PO Q12H [facility] Last Admin: 06/02/23 10:21 Dose: 100 mg Documented By: ROSANNE Heparin Sodium (Porcine) (Heparin Sodium,Porcine 5,000 Unit/Ml Vial) 5,000 unit SUBCUT Q12H [facility] Last Admin: 06/02/23 10:22 Dose: 5,000 unit Documented By: ROSANNE Ceftriaxone Sodium 1 gm/ (Sodium Chloride) 50 mls @ 100 mls/hr IV Q24H [facility] Last Infusion: 06/01/23 16:41 Dose: Infused Documented By: PINEDA Midodrine (Midodrine Hcl 2.5 Mg Tablet) 2.5 mg PO TID [facility] Last Admin: 06/02/23 10:21 Dose: 2.5 mg Documented By: ROSANNE Pantoprazole Sodium (Pantoprazole Sodium 40 Mg/10 Ml Vial) 40 mg IVPUSH DAILY@0630 [facility] Last Admin: 06/02/23 06:27 Dose: 40 mg Documented By: PREETI Prednisone (Prednisone 20 Mg Tablet) 40 mg PO DAILY [facility] Last Admin: 06/02/23 10:21 Dose: 40 mg Documented By: ROSANNE Sertraline HCl (Sertraline Hcl 25 Mg Tablet) 37.5 mg PO DAILY [facility] Last Admin: 06/02/23 10:21 Dose: 37.5 mg Documented By: ROSANNE Sodium Chloride (0.9 % Sodium Chloride Flush 3 Ml Syringe) 3 ml IVFLUSH QSHIFT [facility] Last Admin: 06/02/23 10:27 Dose: 3 ml Documented By: ROSANEN Labs 05/31/23 05:25 05/31/23 05:25 Assessment and Plan (1) Near syncope: Status: Acute (2) Abnormal CXR: Status: Acute (3) Orthostatic hypotension: Status: Acute (4) Pneumonia: Status: Acute (5) Malnutrition: Status: Acute Plan 87 years old woman with past medical history significant for dementia presents with: Near-syncopal episode likely secondary to orthostatic hypotension, likely due to p.o. intake + lisinopril use. moniter on tele ct head: No acute intracranial process seen. Moderate cerebral volume loss with moderate chronic small vessel ischemic changes. carotid dupplex: seems fine. elevated trop possible multifactorial ,ekg nsr,no chest pain - dehydration,pneumonia echo:Normal left ventricular cavity size. There is normal left ventricular wall thickness. The left ventricular systolic function is normal. The calculated ejection fraction is 65% by biplane method. There is no evidence of regional wall motion abnormalities. Diastolic function is normal for age plan: jayson stocking,still orthostatic -added midodrine,PT eval hypoxemic respiratory failure :multifactorial cxr: Pulmonary edema versus underlying lung interstitial disease vs pneumonia . hypoxia elevated bnp and procalcitonin ct chest-Groundglass opacities seen bilaterally most likely due to pneumonitis,emphysema plan: elevated bnp. echo:seems fine as above. continue iv ceftriaxone/doxyccyline 05/31,nebs,steriods.oxygen supplement. Essential hypertension. Lisinopril on hold due to orthostatic hypotension. Continue to monitor blood pressure. Depression. Continue sertraline. GERD. Continue PPI. possible moderate to severe malnutrition: cardiovascular operating room nurse eval pending and speech eval for swallow eval(added chopped/necter thick diet) Code status: DNR/DNI (dw son who mentioned has a MOLST form indicating she is DNR/DNI). DVT prophylaxis: Heparin subQ. ongoing hospitalisation need: hypoxemic respiratory failure multifactorial- pneumonia , emphysema :continuous oxygen need,nebs,steriods ,iv antibiotics ,as well as need workup for syncope, Quality Stroke Does the patient have a stroke diagnosis?: No VTE Prior VTE?: No VTE Risk Level:: Medical - moderate - high VTE Device Contraindication: Treatment Not Indicated VTE Drug Contraindication: N/A - Med Ordered
[2023-06-02] MEDS: cefTRIAXone sodium 1 GM in 0.9 % Sodium Chloride 50 ML IV (14:56)
--- NOTE | 2023-06-02 15:34 | MHC.CM.PN ---
Per RN/UR CM, Patient has been changed from OBSERVATION to INPATIENT. CM met with Patient at bedside and addressed IMM with her (original was given to Patient and a copy has been placed on the chart.
[2023-06-03] VITALS (15 sets, daily range): BP systolic 93–166; BP diastolic 42–87; PULSE 67–126; RESP 18–25; TEMP 36.3–37.2; O2SAT 91–98
[2023-06-03] MEDS: Pantoprazole Sodium 40 MG/10 ML VIAL IVPUSH (05:40)
[2023-06-03] MEDS: Albuterol/Iprat 2.5/0.5MG 3 ML AMPUL.NEB INHALE ×3 (07:29→15:16)
[2023-06-03] MEDS: Heparin Sodium,Porcine 5,000 UNIT/ML VIAL 5000 UNIT SUBCUT ×2 (08:22→22:45)
[2023-06-03] MEDS: predniSONE 20 MG TABLET 40 MG PO (08:23)
[2023-06-03] MEDS: Doxycycline Monohydrate 100 MG CAPSULE PO ×2 (08:23→22:45)
[2023-06-03] MEDS: 0.9 % Sodium Chloride Flush 3 ML SYRINGE IVFLUSH ×3 (08:23→22:51)
[2023-06-03] MEDS: Midodrine HCl 2.5 MG TABLET PO (08:23)
[2023-06-03] MEDS: Sertraline HCL 25 MG TABLET 37.5 MG PO (08:23)
[2023-06-03 08:53] LABS: Hematocrit 35.4 % (37.0-47.0); Hemoglobin 11.4 g/dl (12.0-16.0); Mean Corpuscular HGB Conc 32.2 g/dl (31.0-35.0); Mean Corpuscular Hemoglobin 31.8 pg (27.0-33.0); Mean Corpuscular Volume 98.9 fL (80.0-98.0); Mean Platelet Volume 9.5 fL (9.4-12.3); Platelet Count 318 X10*3/uL (160-400); Red Blood Count 3.58 X10*6/uL (4.20-5.50); Red Cell Distribution Width 12.9 % (11.0-16.0)
[2023-06-03 09:31] LABS: Procalcitonin 0.06 ng/mL
--- NOTE | 2023-06-03 13:14 | P.PNIM_ITS ---
Subjective Subjective Date of Service: 06/03/23 Interval History: very confused no complaints Review of Systems Review of Systems: Yes Unobtainable due to mental status Physical Exam 2 Vital Signs: Vital Signs: Last Vital Signs Temp 97.8 F 06/03/23 11:25 Pulse 70 06/03/23 11:29 Resp 18 06/03/23 11:29 BP 140/77 H 06/03/23 11:25 Pulse Ox 91 L 06/03/23 12:04 O2 Del Method Nasal Cannula 06/03/23 11:25 O2 Flow Rate 2 06/03/23 11:25 BMI result Body Mass Index 18.1 Gen: in no acute distress HEENT: sclera anicteric, moist mucus membranes Neck: supple Lungs: inspiratory crackles R>L base Heart: regular rate and rhythm, no murmurs Abd: soft, non-tender, non-distended Ext: no edema Skin: warm/well-perfused Neuro: alert and oriented to self; no focal weakness Psych: impaired insight Objective Data Active Medications Acetaminophen (Acetaminophen 325 Mg Tablet) 650 mg PO Q6H PRN PRN Reason: Pain, Mild (Pain Scale 1-3) Albuterol/Ipratropium (Albuterol/Iprat 2.5/0.5mg 3 Ml Ampul.Neb) 3 ml INHALE RQ4H WHILE AWAKE [facility] Last Admin: 06/03/23 11:27 Dose: 3 ml Documented By: MELINDA Doxycycline Monohydrate (Doxycycline Monohydrate 100 Mg Capsule) 100 mg PO Q12H [facility] Last Admin: 06/03/23 08:23 Dose: 100 mg Documented By: SUSI Heparin Sodium (Porcine) (Heparin Sodium,Porcine 5,000 Unit/Ml Vial) 5,000 unit SUBCUT Q12H [facility] Last Admin: 06/03/23 08:22 Dose: 5,000 unit Documented By: SUSI Ceftriaxone Sodium 1 gm/ (Sodium Chloride) 50 mls @ 100 mls/hr IV Q24H [facility] Last Infusion: 06/02/23 15:29 Dose: Infused Documented By: SUSI Midodrine (Midodrine Hcl 2.5 Mg Tablet) 2.5 mg PO TID [facility] Last Admin: 06/03/23 08:23 Dose: 2.5 mg Documented By: SUSI Prednisone (Prednisone 20 Mg Tablet) 40 mg PO DAILY [facility] Last Admin: 06/03/23 08:23 Dose: 40 mg Documented By: SUSI Sertraline HCl (Sertraline Hcl 25 Mg Tablet) 37.5 mg PO DAILY [facility] Last Admin: 06/03/23 08:23 Dose: 37.5 mg Documented By: SUSI Sodium Chloride (0.9 % Sodium Chloride Flush 3 Ml Syringe) 3 ml IVFLUSH QSHIFT [facility] Last Admin: 06/03/23 08:23 Dose: 3 ml Documented By: SUSI Labs 06/03/23 08:45 05/31/23 05:25 Labs: Laboratory Results - last 24 hr 06/03/23 08:45 MCV 98.9 H MCH 31.8 MCHC 32.2 RDW 12.9 Plt Count 318 MPV 9.5 Absolute Nucleated RBC 0.000 Nucleated RBC % (auto) 0.0 Procalcitonin 0.06 Assessment and Plan (1) Near syncope: Status: Acute (2) Abnormal CXR: Status: Acute (3) Orthostatic hypotension: Status: Acute (4) Pneumonia: Status: Acute (5) Malnutrition: Status: Acute Plan d4 87yo F with dementia admitted after near-syncopal episode, found to have orthostasis and pnemonia orthostatic hypotension - held lisinopril, will increase dose of midodrine and recheck orthostatics in AM - TTE 06/02: - The left ventricular systolic function is normal. The calculated ejection fraction is 65% by biplane method. - There is mild aortic valve regurgitation. - There is mild mitral valve regurgitation. - There is mild to moderate tricuspid valve regurgitation. acute hypoxic resp failure due to pneumonia + emphysema - ceftriaxone + doxycycline 05/31-, prednisone 05/31-06/04 - PCT low, urine antigens for Legionella + pneumococcus pending - wean O2 as tolerated HTN - lisinopril held due to above depression/dementia - sertraline GERD - PPI mod pro-rylie malnutrition - supplements - SORTING AND FOLDING SUPERVISOR: NDD3 solids, honey-thick liquids VTE ppx - UFH dispo - PT recommended STR In my clinical judgment, the patient requires continued inpatient hospitalization for the following reasons: hypoxia, orthostasis Total time managing care of this patient today: 45 minutes. Quality Stroke Does the patient have a stroke diagnosis?: No VTE Prior VTE?: No VTE Risk Level:: Medical - moderate - high VTE Device Contraindication: Treatment Not Indicated VTE Drug Contraindication: N/A - Med Ordered
--- NOTE | 2023-06-03 14:21 | MHC.CM.PN ---
PT is recommending STR; CM will follow.
--- NOTE | 2023-06-03 15:18 | MHC.SPEECHCO ---
Pt is fast asleep on arrival. Her Son, Sushant is in the room with her. He reports she is tolerating her current diet of Ground/Mech. Altered Solids (NDD2) and Honey-Thick Liquids without issue or complaint. PEARL STRINGER will continue to follow.
[2023-06-03] MEDS: cefTRIAXone sodium 1 GM in 0.9 % Sodium Chloride 50 ML IV (16:00)
[2023-06-03] MEDS: Midodrine HCl 5 MG TABLET PO (16:00)
[2023-06-04] VITALS (9 sets, daily range): BP systolic 138–174; BP diastolic 72–91; PULSE 68–104; RESP 20–21; TEMP 36.1–37.1; O2SAT 88–97
[2023-06-04] MEDS: Sertraline HCL 25 MG TABLET 37.5 MG PO (09:28)
[2023-06-04] MEDS: Doxycycline Monohydrate 100 MG CAPSULE PO ×2 (09:31→21:29)
[2023-06-04] MEDS: Heparin Sodium,Porcine 5,000 UNIT/ML VIAL 5000 UNIT SUBCUT ×2 (09:31→21:29)
[2023-06-04] MEDS: predniSONE 20 MG TABLET 40 MG PO (09:31)
[2023-06-04] MEDS: Midodrine HCl 5 MG TABLET PO ×3 (09:31→16:46)
[2023-06-04] MEDS: 0.9 % Sodium Chloride Flush 3 ML SYRINGE IVFLUSH ×2 (09:32→16:40)
--- NOTE | 2023-06-04 10:18 | MHC.CLN ---
F/U PT IS MODERATELY MALNOURISHED SEE FULL CLINICAL NUTRITION ASSESSMENT DATED 06/02/23 PO INTAKE FAIR TO GOOD DIET RX: CHOPPED WITH HT LIQ PER UNDERWRITING CLERK PT RECEIVING MAGIC CUP TID TO INCREASE KCALS SUPP PROVIDES 870KCALS, 27G PROTEIN CONTINUE TO MONITOR PO INTAKE AND ENCOURAGE SUPPLEMENT
--- NOTE | 2023-06-04 11:05 | MHC.SL.SWA ---
Risk of Aspiration Due to: History of Pneumonia Reduced Cognition Dysphasia Diet Status: No change Liquid Consistency and Strategies for Safe Swallow: Liquid Intake Recommendation: Honey Thick Liquid Intake Strategies: Small Sips No Straws Solid Food Consistency: Dietary Recommendations: Chopped/Advanced (NDD3) Oral Medication Intake: Crushed with Puree Please contact the pharmacy regarding appropriate crushable or liquid drug formulations that are available whenever modified delivery is recommended. Compensatory Strategies and Precautions to be Taken for Safe Swallow: Sitting Upright (90 deg) Double Swallow No Straw Small Bites and Sips Alternate Liquids/Solids Rate of Ingestion Change Avoid Specific Foods Supervision While Eating and Drinking for Safe Swallow: Total Supervision (1:1) Foods to Avoid: Mixed textures; hard, dry, or crunchy foods Swallowing Recommended Treatments: Compens. Strategy Educat. Recommendation for Speech: Inpatient Speech Therapy Comment: Patient appears to be on safest and least restrictive diet at this time; no changes recommended. Recommend patient continue with CHOPPED/ADVANCED solids (NDD3) and HONEY THICK liquids. Pills CRUSHED in puree. Maintain aspiration precautions and direct supervision with close monitoring. Ensure optimal positioning for meals and set up tray for feeding. Provide assistance as needed. Frequency/Duration: PRN M-F Concrete Pourer Clinican/Clinical Fellow: No Supervisory Statement: I have reviewed and agree with the student/clinical fellow's documentation: N/A Speech Language Pathologist: Maria A Posadas M.A., CCC-DIRECTOR OF IT OPERATIONS
--- NOTE | 2023-06-04 11:09 | P.PNIM_ITS ---
Subjective Subjective Date of Service: 06/04/23 Interval History: quite confused, denies any complaints but unreliable historian Review of Systems Review of Systems: Yes Unobtainable due to mental status Physical Exam 2 Vital Signs: Vital Signs: Last Vital Signs Temp 98.8 F 06/04/23 07:18 Pulse 80 06/04/23 07:43 Resp 20 06/04/23 07:18 BP 157/83 H 06/04/23 07:43 Pulse Ox 92 06/04/23 07:18 O2 Del Method Room Air 06/04/23 07:18 O2 Flow Rate 3 06/04/23 04:00 BMI result Body Mass Index 18.1 Gen: in no acute distress HEENT: sclera anicteric, moist mucus membranes Neck: supple Lungs: clear Heart: regular rate and rhythm, no murmurs Abd: soft, non-tender, non-distended Ext: no edema Skin: warm/well-perfused Neuro: alert and oriented to self; no focal weakness Psych: impaired insight Objective Data Active Medications Acetaminophen (Acetaminophen 325 Mg Tablet) 650 mg PO Q6H PRN PRN Reason: Pain, Mild (Pain Scale 1-3) Albuterol/Ipratropium (Albuterol/Iprat 2.5/0.5mg 3 Ml Ampul.Neb) 3 ml INHALE RQ4H WHILE AWAKE [facility] Last Admin: 06/04/23 07:26 Dose: Not Given Documented By: MELINDA Non-Admin Reason: Patient Condition Contraindication Doxycycline Monohydrate (Doxycycline Monohydrate 100 Mg Capsule) 100 mg PO Q12H [facility] Last Admin: 06/04/23 09:31 Dose: 100 mg Documented By: JOSEPH Heparin Sodium (Porcine) (Heparin Sodium,Porcine 5,000 Unit/Ml Vial) 5,000 unit SUBCUT Q12H [facility] Last Admin: 06/04/23 09:31 Dose: 5,000 unit Documented By: JOSEPH Ceftriaxone Sodium 1 gm/ (Sodium Chloride) 50 mls @ 100 mls/hr IV Q24H [facility] Last Infusion: 06/03/23 16:35 Dose: Infused Documented By: SUSI Midodrine (Midodrine Hcl 5 Mg Tablet) 5 mg PO TIDWM [facility] Last Admin: 06/04/23 09:31 Dose: 5 mg Documented By: JOSEPH Prednisone (Prednisone 20 Mg Tablet) 40 mg PO DAILY [facility] Stop: 06/04/23 18:00 Last Admin: 06/04/23 09:31 Dose: 40 mg Documented By: JOSEPH Sertraline HCl (Sertraline Hcl 25 Mg Tablet) 37.5 mg PO DAILY [facility] Last Admin: 06/04/23 09:28 Dose: 37.5 mg Documented By: JOSEPH Sodium Chloride (0.9 % Sodium Chloride Flush 3 Ml Syringe) 3 ml IVFLUSH QSHIFT [facility] Last Admin: 06/04/23 09:32 Dose: 3 ml Documented By: JOSEPH Labs 06/03/23 08:45 05/31/23 05:25 Assessment and Plan (1) Near syncope: Status: Acute (2) Abnormal CXR: Status: Acute (3) Orthostatic hypotension: Status: Acute (4) Pneumonia: Status: Acute (5) Malnutrition: Status: Acute Plan d5 87yo F with dementia admitted after near-syncopal episode, found to have orthostasis and pnemonia orthostatic hypotension - held lisinopril, now on midodrine; orthostatics this AM 173/87 standing, 174/91 sitting, 157/83 lying - TTE 06/02: - The left ventricular systolic function is normal. The calculated ejection fraction is 65% by biplane method. - There is mild aortic valve regurgitation. - There is mild mitral valve regurgitation. - There is mild to moderate tricuspid valve regurgitation. 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 Quality Stroke Does the patient have a stroke diagnosis?: No VTE Prior VTE?: No VTE Risk Level:: Medical - moderate - high VTE Device Contraindication: Treatment Not Indicated VTE Drug Contraindication: N/A - Med Ordered
[2023-06-04] MEDS: Albuterol/Iprat 2.5/0.5MG 3 ML AMPUL.NEB INHALE ×2 (11:26→15:12)
[2023-06-04] MEDS: cefTRIAXone sodium 1 GM in 0.9 % Sodium Chloride 50 ML IV (16:40)
[2023-06-05 00:18] VITALS: BP 140/86; PULSE 63; RESP 16; TEMP 36.8; O2SAT 96
[2023-06-05 04:00] VITALS: BP 153/84; PULSE 59; RESP 16; TEMP 36.8; O2SAT 93
[2023-06-05 07:10] VITALS: BP 167/90; PULSE 63; RESP 20; TEMP 37.3; O2SAT 97
[2023-06-05] MEDS: Heparin Sodium,Porcine 5,000 UNIT/ML VIAL 5000 UNIT SUBCUT (09:43)
[2023-06-05] MEDS: Doxycycline Monohydrate 100 MG CAPSULE PO (09:43)
[2023-06-05] MEDS: 0.9 % Sodium Chloride Flush 3 ML SYRINGE IVFLUSH ×2 (09:43)
[2023-06-05] MEDS: Midodrine HCl 5 MG TABLET PO ×2 (09:43→11:52)
[2023-06-05] MEDS: Sertraline HCL 25 MG TABLET 37.5 MG PO (09:44)
--- NOTE | 2023-06-05 10:01 | P.CDIM_ITS ---
PROVIDER RESPONSE TEXT: To clarify, the appropriate diagnosis supported by the clinical indicators: Moderate QUERY TEXT: PHYSICIAN'S DOCUMENTATION REQUEST Date of Query: 06/05/2023 09:43 AM EST Patient Name: Sagrario Hart Admit Date: 06/02/2023 Dear Roman Dacosta, A review of the medical record indicates additional documentation may be needed. Please review below and update the documentation accordingly. Documentation includes the diagnosis of malnutrition. Progress note dated 06/02 - Plan: possible moderate to severe malnutrition. Progress note dated 06/03 - Plan: moderate pro-rylie malnutrition-supplements Consistency regarding the malnutrition: Moderate Severe Other (explain) Clinically unable to determine (explain) Thank you, Huma Givens, CCS, CDIS Use of terms such as suspected, likely, concern for, or probable (associated with a specific diagnosi s that is being evaluated, monitored, or treated as if it exists) are acceptable and can be coded in the inpatient se tting, when documented at the time of discharge. Please use your independent medical judgment in providing your response. THIS QUERY IS PART OF THE PERMANENT MEDICAL RECORD
--- NOTE | 2023-06-05 10:22 | MHC.CM.PN ---
PT MEDICALLY CLEARED FOR DC TO STR AT [facility] FOR TRANSPORT
--- NOTE | 2023-06-05 10:27 | PM.DS ---
DS: Providers Provider Date of Service: 06/05/23 Date of admission: 06/02/23 15:31 Date of discharge: 06/05/23 Primary care physician: Pablo Chavez DO DS: Diagnosis Discharge Diagnosis (1) Near syncope: Status: Acute (2) Orthostatic hypotension: Status: Acute (3) Pneumonia: Status: Acute (4) Acute respiratory failure with hypoxia: Status: Acute (5) Essential hypertension: Status: Acute (6) Moderate malnutrition: Status: Acute DS: Summary Hospital Course Hospital Course: from admission H+P by hospitalist May Shepherd, 05/31/23: Sagrario Hart is 87 years old woman with past medical history significant for dementia and hypertension was brought to the emergency department via EMS after she almost faint last evening around 6 pm. The patient was walking and became very weak and barely responsive. Her son called her and lower her to the ground. No seizure activity noted by son. No events of vomiting or diarrhea noted. Patient has significant dementia however was able to say that she gets headaches occasionally. She denied any chest pain, abdominal pain or shortness on breath. Fever or chills not reported. There is no history of tobacco smoking, alcohol abuse or illicit drug use. Patient has been taking cephalexin over the last 2 days for a presumed UTI. Patient's son who was at bedside comment the patient does not eat or drink well. In the ED, she was found to have orthostatic vital signs. No tachycardia, fevers or tachypnea. CBC showed no leukocytosis of 11.2. Total bilirubin is slightly elevated (direct bilirubin 0.7). Transaminases and alk-phos are normal. CXR showed findings possibly indicating interstitial edema/pneumonia versus pulmonary edema and/or chronic interstitial lung disease. Head CT scan showed no acute intracranial abnormalities. ED tx: NS 1 L bolus 87yo F with dementia admitted after near-syncopal episode, found to have orthostasis and pnemonia. Hospital course by problem: presyncope due to orthostatic hypotension - held lisinopril and started midodrine with resolution of orthostatic hypotension - recommend Nephrology referral as outpatient for management of orthostatic hypotension - discharged on midodrine and discontinued lisinopril - TTE 06/02: - The left ventricular systolic function is normal. The calculated ejection fraction is 65% by biplane method. - There is mild aortic valve regurgitation. - There is mild mitral valve regurgitation. - There is mild to moderate tricuspid valve regurgitation. acute hypoxic respiratory failure due to pneumonia + emphysema - treated with ceftriaxone + doxycycline 05/31- and discharged on 1 day of cefdinir + doxycycline - treated with prednisone 05/31-06/04 - PCT low, urine antigens for Legionella + pneumococcus pending - wean O2 as tolerated moderate protein-calorie malnutrition - should take Ensure or Boost 1 can twice daily - CONCRETE ANALYST consulted: NDD3 solids, honey-thick liquids She was discharged to [facility] for short-term rehabilitation. Time Attestation Discharge coordination time: Greater than 30 minutes Quality: Safe Use of Opioids Does Pt have an Active Cancer Diagnosis on the Problem List?: No Quality: Stroke Does the patient have a stroke diagnosis?: No Physical Exam Vital Signs: Vital Signs: Last Vital Signs Temp 99.1 F 06/05/23 07:10 Pulse 63 06/05/23 07:10 Resp 20 06/05/23 07:10 BP 167/90 H 06/05/23 07:10 Pulse Ox 97 06/05/23 07:10 O2 Del Method Nasal Cannula 06/05/23 07:10 O2 Flow Rate 2 06/05/23 07:10 BMI result Body Mass Index 18.1 Gen: in no acute distress HEENT: sclera anicteric, moist mucus membranes Neck: supple Lungs: clear Heart: regular rate and rhythm, no murmurs Abd: soft, non-tender, non-distended Ext: no edema Skin: warm/well-perfused Neuro: alert and oriented to self; no focal weakness Psych: impaired insight Discharge Plan Discharge Anticipated Discharge Date/Time: 06/05/23 10:20 Patient Disposition: Xfer SNF Discharge Diagnosis: Presyncope due to orthostatic hypotension Hypoxia due to pneumonia Moderate malnutrition Referrals: Pablo Chavez DO [Primary Care Provider] - 1 Week Reagan Mueller MD [Physician] - 2 Weeks (Orthostatic hypotension ) Discharge Medications: New midodrine 5 mg Tablet 5 mg PO TIDWM Qty: 90 0RF doxycycline monohydrate 100 mg Capsule 100 mg PO Q12H Qty: 2 0RF cefdinir 300 mg capsule 300 mg PO BID Qty: 2 0RF Continued sertraline 25 mg tablet 37.5 mg PO DAILY pantoprazole 40 mg tablet,delayed release (DR/EC) 40 mg PO DAILY@0630 Discontinued lisinopril 10 mg tablet 10 mg PO DAILY cephalexin 500 mg capsule 500 mg PO BID Rx Instructions: END DATE: 06/04/23 Discharge Orders: Discharge Order (Routine); Ordered 06/05/23 Ordered By: Roman Dacosta Diet: Advance to usual diet Activity on Discharge: As tolerated Stand Alone Forms: Patient Portal Discharge page Care Plan Goals: Avoid syncope and fall Treat pneumonia Improved nutrition Health Concerns: Presyncope due to orthostatic hypotension Hypoxia due to pneumonia Moderate malnutrition Plan of Treatment: Stop lisinopril Take midodrine 5 mg 3x a day Recheck orthostatics 3x a week Referral to Nephrology for management of orthostatic hypotension Wean oxygen as tolerated Doxycycline 100 mg twice daily for 2 more doses Cefdinir 300 mg twice daily for 2 more doses Take Ensure or Boost 1 can twice a day NDD3 solids, honey-thick liquids Please follow up with your primary care doctor within 1 week of discharge from rehab. Return to the hospital if you experience recurrent or worsening symptoms. Assessment: See Discharge Summary.
[2023-06-05] MEDS: Albuterol/Iprat 2.5/0.5MG 3 ML AMPUL.NEB INHALE (11:07)
[2023-06-05 11:09] VITALS: PULSE 62; RESP 18; O2SAT 95
[2023-06-05] MEDS: cefTRIAXone sodium 1 GM in 0.9 % Sodium Chloride 50 ML IV (12:37)
[2023-06-08 20:08] LABS: Strep Pneumo Ag urine Not Detected (Not Detected)
[2023-06-09 03:49] LABS: Legionella Ag Urine Not Detected (Not Detected)
== END 2023-06-05 13:31 | disposition skilled nursing facility (03) | DRG 193 ==
LOC: HO.ED 05-31 02:05 → HO.EDOVER 05-31 03:47 → HO.IMC 05-31 16:59
PROVIDERS: Internal Medicine; Admitting Provider Internal Medicine; Emergency Provider Emergency Medicine Emergency Medical Services; PCP Family Medicine; Visit Provider Family Medicine
DX: J18.9 Pneumonia, unspecified organism (principal); J96.01 Acute respiratory failure with hypoxia; E44.0 Moderate protein-calorie malnutrition; Z68.1 Body mass index [BMI] 19.9 or less, adult; Z66 Do not resuscitate; E86.0 Dehydration; J43.9 Emphysema, unspecified; I10 Essential (primary) hypertension; I08.3 Combined rheumatic disorders of mitral, aortic and tricuspid valves; I95.1 Orthostatic hypotension; K21.9 Gastro-esophageal reflux disease without esophagitis; F32.A Depression, unspecified; F03.90 Unspecified dementia, unspecified severity, without behavioral disturbance, psychotic disturbance, mood disturbance, and anxiety; Z79.899 Other long term (current) drug therapy
CPT/HCPCS: 36415; 70450; 71045; 71250; 80048; 80053; 80076; 81001; 82947; 83690; 83735; 83880; 84145; 84484; 85025; 85027; 85730; 87449; 87899; 92526; 92610; 93005; 93306; 93880; 97162; 97530; 99222; 99285; C9113; J0696; J1644

== ENCOUNTER → 2023-05-30 21:51 | Outpatient (BNV) | payer MEDICARE, SELFPAY | PROVIDERS: Admitting Provider Internal Medicine; Emergency Provider Emergency Medicine Emergency Medical Services; PCP Family Medicine; Visit Provider Internal Medicine Cardiovascular Disease | DX: I95.1 Orthostatic hypotension (principal); R94.31 Abnormal electrocardiogram [ECG] [EKG] | CPT/HCPCS: 93010 ==

== ENCOUNTER 2023-05-31 03:36 | Outpatient (BNV) | payer MEDICARE, SELFPAY | END 2023-06-02 07:00 | PROVIDERS: Admitting Provider Internal Medicine; Emergency Provider Emergency Medicine Emergency Medical Services; PCP Family Medicine; Visit Provider Internal Medicine | DX: I95.1 Orthostatic hypotension (principal) | CPT/HCPCS: 93306 ==

== ENCOUNTER → 2023-05-31 03:36 | Outpatient (BNV) | payer MEDICARE, SELFPAY | PROVIDERS: Admitting Provider Internal Medicine; Emergency Provider Emergency Medicine Emergency Medical Services; PCP Family Medicine; Visit Provider Internal Medicine | DX: I95.1 Orthostatic hypotension (principal); I10 Essential (primary) hypertension; R93.89 Abnormal findings on diagnostic imaging of other specified body structures; K21.9 Gastro-esophageal reflux disease without esophagitis; R42 Dizziness and giddiness; R55 Syncope and collapse | CPT/HCPCS: 99223; 99231; 99232; 99238; 99499 ==